=== PATIENT | female | born 1995 | race Caucasian/White ===

== ENCOUNTER 2021-05-24 12:54 | Emergency (ER) | payer MEDICAID ==
[~2021-05-24] VITALS: Ht 162.6 cm; Wt 82.0 kg
[2021-05-24 13:02] VITALS: BP 115/76
== END 2021-05-25 01:12 | disposition left against medical advice (07) ==
LOC: ER 12:54
DX: M25.561 Pain in right knee (principal); Z53.21 Procedure and treatment not carried out due to patient leaving prior to being seen by health care provider